=== PATIENT | female | born 1965 | race Caucasian/White ===

== ENCOUNTER → 2023-07-25 14:45 | Outpatient (BNVA) | payer BC, SELFPAY | PROVIDERS: PCP Nurse Practitioner Family; Visit Provider Nurse Practitioner Family | DX: R21 Rash and other nonspecific skin eruption (principal); Z12.4 Encounter for screening for malignant neoplasm of cervix; E66.9 Obesity, unspecified | CPT/HCPCS: 80053; 80061; 84443; 85025 ==

== ENCOUNTER 2023-09-05 10:51 | Outpatient (CLI) | payer BC, SELFPAY ==
--- NOTE | 2023-09-05 11:00 | MM_ITS ---
WS: [id number] BILATERAL SCREENING DIGITAL TOMOSYNTHESIS MAMMOGRAM WITH CAD HISTORY: Z12.39 - Encounter for other screening for malignant neop... COMPARISON: 05/12/2010, 01/07/2009 Bilateral CC and MLO views with tomosynthesis and synthetic mammography submitted. Computer aided det ection analyzed. Breast composition: There are scattered areas of fibroglandular density. No suspicious masses, microc alcifications or architectural distortion. Biopsy clip in the medial inferior LEFT breast. Stable estefania earance of each breast since 2010. MM/[place] [id number] IMPRESSION: BI-RADS: 2-Benign FOLLOW UP: 1 Year Follow-up
== END 2023-09-05 10:52 | disposition home or self-care (01) ==
LOC: RAD 10:51
PROVIDERS: PCP Nurse Practitioner Family; Visit Provider Nurse Practitioner Family
DX: Z12.31 Encounter for screening mammogram for malignant neoplasm of breast (principal)
CPT/HCPCS: 77063; 77067

== ENCOUNTER → 2023-12-07 08:57 | Outpatient (BNVA) | payer BC, SELFPAY | PROVIDERS: PCP Nurse Practitioner Family; Visit Provider Nurse Practitioner Family | DX: R79.89 Other specified abnormal findings of blood chemistry (principal) | CPT/HCPCS: 84443 ==

== ENCOUNTER → 2024-10-28 11:18 | Outpatient (BNVA) | payer BC, SELFPAY | PROVIDERS: PCP Nurse Practitioner Family; Visit Provider Nurse Practitioner Family | DX: F41.9 Anxiety disorder, unspecified (principal) | CPT/HCPCS: 80053; 80061; 84443; 85025 ==

== ENCOUNTER 2024-11-08 12:05 | Outpatient (CLI) | payer BC, SELFPAY ==
--- NOTE | 2024-11-08 12:15 | USR_ITS ---
PROCEDURE INFORMATION: Exam: US Soft Tissue Head and Neck, Thyroid Exam date and time: 11/08/2024 12:16 PM Age: 59 years old Clinical indication: Mass, lump, or swelling in neck; Bilateral; Additional info: R22.1 - localized swelling, mass and lump, neck TECHNIQUE: Imaging protocol: Real-time ultrasound scan of the neck with image documentation. Exam focused on the thyroid. COMPARISON: No relevant prior studies available. FINDINGS: Right thyroid lobe: The right lobe of the thyroid measures 3.8 x 1.5 x 1.1 cm. Right lobe is heterogeneous, but focal nodule was not demonstrated. Left thyroid lobe: The left lobe measures 3.2 x 1.8 x 1.3 cm. The left lobe is heterogeneous, but focal nodule was not identified. Isthmus: The thyroid isthmus measures 0.3 cm Soft tissues: In the location palpable lump indicated by the patient, a subcutaneous complex cyst is identified which measures 7 x 6 x 7 mm. The well-defined cyst contains some irregular soft tissue echogenicity and no vascular flow. US/US thyroid [id number] IMPRESSION: 1. Nonspecific heterogeneity of the thyroid gland. Findings could represent a multinodular gland, thyroiditis or chronic thyroid suppression via thyroid hormone supplementation 2. 7 mm subcutaneous cyst accounting for palpable lump in the lateral left neck. Sebaceous cyst is likely. Subcutaneous abscess could explain this appearance, which should be determined clinically.
== END 2024-11-08 12:06 | disposition home or self-care (01) ==
LOC: RAD 12:07
PROVIDERS: PCP Nurse Practitioner Family; Visit Provider Nurse Practitioner Family
DX: L72.8 Other follicular cysts of the skin and subcutaneous tissue (principal); R22.1 Localized swelling, mass and lump, neck
CPT/HCPCS: 76536

== ENCOUNTER 2025-02-27 14:48 | Outpatient (CLI) | payer BC, SELFPAY ==
[2025-02-27 15:58] LABS: Free T4 Free Thyroxine 1.09 ng/dL (0.82-1.77); Thyroid Stimulating Hormone 4.74 uIU/mL (0.27-4.20)
== END 2025-02-27 14:49 | disposition home or self-care (01) ==
LOC: LAB 14:48
PROVIDERS: PCP Nurse Practitioner Family; Visit Provider Internal Medicine
DX: R79.89 Other specified abnormal findings of blood chemistry (principal); R93.89 Abnormal findings on diagnostic imaging of other specified body structures
CPT/HCPCS: 36415; 83516; 84439; 84443; 86376; 86800